=== PATIENT | male | born 1960 | race Caucasian/White ===

== ENCOUNTER 2021-01-16 09:40 | Inpatient (IN) | payer BC ==
[2021-01-16 10:19] LABS: Basophils % (A) 1 %; Eosinophils % (A) 0 %; HCT 46.6 % (39.0-53.0); HGB 16.8 gm/dL (13.0-17.5); Hyperchromasia Slight; Lymphocytes # (A) 0.6 k/uL (1.0-4.8); Lymphocytes % (A) 9 %; MCH 33.9 pg (25.0-35.0); MCHC 36.1 g/dL (31.0-37.0); MCV 93.9 fL (80.0-100.0); Mean Platelet Volume 7.4; Monocytes # (A) 0.2 k/uL (0-1.0); Monocytes % (A) 3 %; Neutrophils # (A) 5.7 k/uL (1.3-7.7); Neutrophils % (A) 86 %; Platelet Count 208 k/uL (150-450); RBC 4.96 m/uL (4.30-5.90); RDW 13.5 % (11.5-15.5); WBC 6.7 k/uL (3.8-10.6)
--- NOTE | 2021-01-16 10:24 | XR ---
EXAMINATION TYPE: XR chest 2V DATE OF EXAM: 01/16/2021 COMPARISON: NONE HISTORY: Shortness of breath TECHNIQUE: Frontal and lateral views of the chest are obtained. FINDINGS: Scattered senescent parenchymal changes noted. Hyperinflation compatible with COPD. I cannot exclude vague limited infiltrate at the lateral left lung base. Correlate clinically. Heart size is stable. Mediastinal structures are stable and grossly unremarkable. No evidence for hilar prominence. Degenerative changes dorsal spine. IMPRESSION: I cannot exclude vague limited infiltrate at the lateral left lung base. Correlate clinically.
--- NOTE | 2021-01-16 10:24 | ED ---
URI HPI - General Chief Complaint: Upper Respiratory Infection Stated Complaint: Covid+, SOB Time Seen by Provider: 01/16/21 09:52 Source: patient, RN notes reviewed Mode of arrival: wheelchair Limitations: no limitations - History of Present Illness Initial Comments: Patient is a 60-year-old male presented to the ED for upper respiratory symptoms. Patient reports cough congestion and mild shortness of breath with increased weakness and fatigue for the last 10 days. Patient reports symptoms started January 06, tested positive for "head on the as well. She was never tested but assumes it is also covid. Patient denies any respiratory il lness history or smoking. Patient's does report patient shivering and with chills. Patient denies ever having recorded fever. She reports decreased oral intake, diarrhea and decreased urinary output over the last 10 days. - Related Data Home Medications Medication Instructions Recorded Confirmed No Known Home Medications 01/16/21 01/16/21 Allergies Allergy/AdvReac Type Severity Reaction Status Date / Time No Known Allergies Allergy Verified 01/16/21 10:47 Review of Systems ROS Statement: Those systems with pertinent positive or pertinent negative responses have been documented in the HPI. ROS Other: All systems not noted in ROS Statement are negative. Past Medical History Past Medical History: No Reported History History of Any Multi-Drug Resistant Organisms: None Reported Past Surgical History: No Surgical Hx Reported Past Psychological History: No Psychological Hx Reported Smoking Status: Never smoker Past Alcohol Use History: None Reported Past Drug Use History: Marijuana General Exam Limitations: no limitations General appearance: alert, in no apparent distress Respiratory exam: Present: normal lung sounds bilaterally. Absent: respiratory distress, wheezes, rales, rhonchi, stridor Cardiovascular Exam: Present: regular rate, normal rhythm, normal heart sounds. Absent: systolic murmur, diastolic murmur, rubs, gallop, clicks GI/Abdominal exam: Present: soft, normal bowel sounds. Absent: distended, tenderness, guarding, rebound, rigid Neurological exam: Present: alert, oriented X3 Skin exam: Present: warm, dry, intact, normal color. Absent: rash Course Vital Signs 01/16/21 01/16/21 01/16/21 09:45 10:34 11:03 Temperature 98.5 F Pulse Rate 81 Respiratory 20 Rate Blood Pressure 116/80 O2 Sat by Pulse 89 L 95 89 L Oximetry Medical Decision Making - Medical Decision Making Patiently admitted for COVID-19 with hypoxia patient will consult pulmonary. - Lab Data Result diagrams: 01/16/21 10:05 01/16/21 10:05 Lab Results 01/16/21 01/16/21 01/16/21 Range/Units 10:05 10:05 10:05 WBC 6.7 (3.8-10.6) k/uL RBC 4.96 (4.30-5.90) m/uL Hgb 16.8 (13.0-17.5) gm/dL Hct 46.6 (39.0-53.0) % MCV 93.9 (80.0-100.0) fL MCH 33.9 (25.0-35.0) pg MCHC 36.1 (31.0-37.0) g/dL RDW 13.5 (11.5-15.5) % Plt Count 208 (150-450) k/uL MPV 7.4 Neutrophils % 86 % Lymphocytes % 9 % Monocytes % 3 % Eosinophils % 0 % Basophils % 1 % Neutrophils # 5.7 (1.3-7.7) k/uL Lymphocytes # 0.6 L (1.0-4.8) k/uL Monocytes # 0.2 (0-1.0) k/uL Eosinophils # 0.0 (0-0.7) k/uL Basophils # 0.0 (0-0.2) k/uL Hyperchromasia Slight Sodium 136 L (137-145) mmol/L Potassium 3.9 (3.5-5.1) mmol/L Chloride 100 (98-107) mmol/L Carbon Dioxide 26 (22-30) mmol/L Anion Gap 10 mmol/L BUN 54 H (9-20) mg/dL Creatinine 1.53 H (0.66-1.25) mg/dL Est GFR (CKD-EPI)AfAm 56 (>60 ml/min/1.73 sqM) Est GFR (CKD-EPI)NonAf 49 (>60 ml/min/1.73 sqM) Glucose 125 H (74-99) mg/dL Calcium 9.1 (8.4-10.2) mg/dL Total Bilirubin 1.5 H (0.2-1.3) mg/dL AST 85 H (17-59) U/L ALT 80 H (4-49) U/L Alkaline Phosphatase 73 (38-126) U/L Total Protein 7.1 (6.3-8.2) g/dL Albumin 3.9 (3.5-5.0) g/dL Coronavirus (PCR) Detected A (Not Detectd) Disposition Clinical Impression: Hypoxia, COVID-19 Disposition: ADMITTED IP TO THIS HOSP Condition: Fair Referrals: Amy Flores MD [Primary Care Provider] - 1-2 days
[2021-01-16 10:36] LABS: Albumin 3.9 g/dL (3.5-5.0); Calcium 9.1 mg/dL (8.4-10.2); Potassium 3.9 mmol/L (3.5-5.1); Total Bilirubin 1.5 mg/dL (0.2-1.3); Total Protein 7.1 g/dL (6.3-8.2)
[2021-01-16] MEDS ORDERED: SODIUM CHLORIDE 0.9% 1,000 ML IV STA (11:31)
[2021-01-16] MEDS ORDERED: NALOXONE 0.4 MG/ML 1 ML VIAL IV PRN (12:31)
[2021-01-16] MEDS ORDERED: ACETAMINOPHEN TAB 325 MG TAB PO PRN (12:31)
[2021-01-16] MEDS: DEXAMETHASONE SOD PHOSPHATE 10 MG/ML 1 ML VIAL IVP SCH (12:40)
[2021-01-16] MEDS: SODIUM CHLORIDE 0.9% 1,000 ML IV SCH (12:41)
[2021-01-16 13:32] LABS: C Reactive Protein 4.9 mg/dL (<1.0)
--- NOTE | 2021-01-16 13:50 | P.CNPUL ---
History of Present Illness Consult date: 01/16/21 Reason for consult: dyspnea, pneumonia History of present illness: 60-year-old male patient hospitalized for COVID-19 related pneumonia. Currently the patient does of oxygen by nasal cannula. He presented to the ED with symptoms of URI. He also had increased cough and congestion somewhat shortness of breath. His been experiencing weakness and fatigue for the past 10 days. The patient reports diminished oral intake, diarrhea and diminished urine output over the past 10 days. Denies having any fever. In the emergency department, he was afebrile, hemodynamically stable, pulse ox was 89% on room air, placed on 3 L about 2 by nasal cannula. Chest x-ray showing some limited infiltration of the lung bases most on the leftairfit the white cell count is at 6.7 with hemoglobin of 16.8 and the platelet count 28, BUN is 54 with a creatinine of 1.5 and sodium of 136 and a potassium level of 3.9, calcium 7.1, mild transaminitis with an AST of 85, ALT is 80, COVID-19 was positive. Patient was started on Decadron. Degenerative markers are still pending for now. He was also on IV fluids here and he is quite dehydrated. According to the , the patient has not been taking any oral intake for the past 4-5 days at least. He was getting progressively more weak and lethargic. Review of Systems Constitutional: Reports fatigue, Reports fever, Reports weakness Eyes: denies as per HPI, denies blurred vision, denies bulging eye, denies decreased vision, denies diplopia, denies discharge, denies dry eye, denies irritation, denies itching, denies pain, denies photophobia, denies loss of peripheral vision, denies loss of vision, denies tunnel vision/blind spots Ears: deny: decreased hearing, ear discharge, earache, tinnitus Ears, nose, mouth and throat: Reports as per HPI Breasts: absent: as per HPI, gynecomastia Cardiovascular: Reports as per HPI Respiratory: Reports cough, Reports dyspnea Gastrointestinal: Reports diarrhea Genitourinary: Reports as per HPI Musculoskeletal: Reports as per HPI Musculoskeletal: absent: ankle pain, ankle stiffness, ankle swelling, as per HPI, elbow pain, elbow stiffness, elbow swelling, foot pain, foot stiffness, foot swelling, hand pain, hand stiffness, hand swelling, hip pain, hip stiffness, hip swelling, knee pain, knee stiffness, knee swelling, shoulder pain, shoulder stiffness, shoulder swelling, wrist pain, wrist stiffness, wrist swelling Integumentary: Reports as per HPI Neurological: Reports as per HPI Psychiatric: Reports as per HPI Endocrine: Reports as per HPI Hematologic/Lymphatic: Reports as per HPI Allergic/Immunologic: Reports as per HPI Past Medical History Past Medical History: No Reported History History of Any Multi-Drug Resistant Organisms: None Reported Past Surgical History: No Surgical Hx Reported Past Psychological History: No Psychological Hx Reported Smoking Status: Never smoker Past Alcohol Use History: None Reported Past Drug Use History: Marijuana Medications and Allergies Home Medications Medication Instructions Recorded Confirmed Type No Known Home Medications 01/16/21 01/16/21 History Allergies Allergy/AdvReac Type Severity Reaction Status Date / Time No Known Allergies Allergy Verified 01/16/21 10:47 Physical Exam Vitals: Vital Signs Temp Pulse Resp BP Pulse Ox 01/16/21 12:44 98.9 F 76 16 101/80 97 01/16/21 11:03 89 L 01/16/21 10:34 95 01/16/21 09:45 98.5 F 81 20 116/80 89 L Intake and Output 01/15/21 01/16/21 01/16/21 22:59 06:59 14:59 Other: Weight 106.594 kg The patient appeared well nourished and normally developed. Vital signs as documented. Head exam is unremarkable. No scleral icterus or corneal arcus noted. Neck is without jugular venous distension, thyromegaly, or carotid bruits. Carotid upstrokes are brisk bilaterally. Lungs are clear to auscultation and percussion. Cardiac exam reveals the PMI to be normally sized and situated. Rhythm is regular. First and second heart sounds normal. No murmurs, rubs or gallops. Abdominal exam reveals normal bowel sounds, no masses, no organomegaly and no aortic enlargement. Extremities are nonedematous and both femoral and pedal pulses are normal.Examination of the skin revealed no evidence of significant rashes, suspicious appearing nevi or other concerning lesions.Neurologically, the patient is awake and alert and the patient does not have any focal neurological deficit. Cranial nerves are essentially intact. Results - Laboratory Findings CBC and BMP: 01/16/21 10:05 01/16/21 10:05 Abnormal lab findings: Abnormal Labs 01/16/21 01/16/21 01/16/21 10:05 10:05 10:05 Lymphocytes # 0.6 L Sodium 136 L BUN 54 H Creatinine 1.53 H Glucose 125 H Total Bilirubin 1.5 H AST 85 H ALT 80 H Coronavirus (PCR) Detected A - Diagnostic Findings Chest x-ray: image reviewed Assessment and Plan Plan: 1 acute COVID-19 related pneumonia. Symptoms started approximately 10 days ago. Patient presented worsening respiratory symptoms and currently hospitalized for hypoxic respiratory failure. This is a nonvaccinated individual 2 acute hypoxic respiratory failure secondary to above currently on 3 L of oxygen by nasal cannula 3 acute kidney injury, likely secondary to intravascular volume depleti on/dehydration. This report Plan Oxygen at 2 L per minute nasal cannula to maintain saturation above 90% Titrate FiO2 to maintain a saturation above 90% Check LDH, CRP and d-dimer and pro-calcitonin levels Decadron 6 mg by mouth on a daily basis The patient is also in the window for Remdesivir Lovenox 40 mg subcu for prophylaxis Multivitamins IV fluid hydration with normal saline as an hour Monitor renal function despite improvement Provide the patient incentive spirometer We'll continue to follow
[2021-01-16] MEDS: ASCORBIC ACID 500 MG TAB PO SCH (17:45)
[2021-01-16] MEDS: ENOXAPARIN 40 MG/0.4 ML SYRINGE SQ SCH (17:45)
[2021-01-16] MEDS: ZINC SULFATE 220 MG CAP PO SCH (17:46)
[2021-01-16] MEDS: CHOLECALCIFEROL 25 MCG (1000 IU) TABLET PO SCH (17:46)
--- NOTE | 2021-01-16 19:39 | P.HPIM ---
History of Present Illness This is a pleasant 60 years old male with no significant past medical history presents because of dyspnea is not getting better and his has been tested positive for Edwin. His symptoms started on 01/06 about 10 days ago. He also has some coughing but no chest pain. Patient had diarrhea which is stopped today. No abdominal pain or vomiting. Patient denies headache weakness or numbness. No dysuria. Patient was not vaccinated He denies smoking, alcohol or illicit tracts Vitals on admission looks stable. He is saturating 94% on 3 L oxygen via nasal cannula. CBC is unremarkable. D-dimer elevated at 3.5 Creatinine is elevated at 1.5 with unknown baseline. Mildly elevated liver enzymes. Coronal virus detected Chest x-ray: Scattered parenchymal changes noted. Hyperinflation compatible with COPD. Possible infiltrate and the left lateral lung Review of Systems CONSTITUTIONAL: No fever, no malaise, no fatigue. HEENT: No recent visual problems or hearing problems. Denied any sore throat. CARDIOVASCULAR: No orthopnea, PND, no palpitations, no syncope. PULMONARY: No shortness of breath, no cough, no hemoptysis. GASTROINTESTINAL: No diarrhea, no nausea, no vomiting, no abdominal pain. Normoactive bowel sounds. NEUROLOGICAL: No headaches, no weakness, no numbness. HEMATOLOGICAL: Denies any bleeding or petechiae. GENITOURINARY: Denies any burning micturition, frequency, or urgency. MUSCULOSKELETAL/RHEUMATOLOGICAL: Denies any joint pain, swelling, or any muscle pain. ENDOCRINE: Denies any polyuria or polydipsia. Past Medical History Past Medical History: No Reported History History of Any Multi-Drug Resistant Organisms: None Reported Past Surgical History: No Surgical Hx Reported Past Psychological History: No Psychological Hx Reported Smoking Status: Never smoker Past Alcohol Use History: None Reported Past Drug Use History: Marijuana Medications and Allergies Home Medications Medication Instructions Recorded Confirmed Type No Known Home Medications 01/16/21 01/16/21 History Allergies Allergy/AdvReac Type Severity Reaction Status Date / Time No Known Allergies Allergy Verified 01/16/21 10:47 Physical Exam Vitals: Vital Signs Temp Pulse Pulse Resp BP BP Pulse Ox 01/16/21 14:00 97.7 F 61 18 129/81 94 L 01/16/21 12:44 98.9 F 76 16 101/80 97 01/16/21 11:03 89 L 01/16/21 10:34 95 01/16/21 09:45 98.5 F 81 20 116/80 89 L Intake and Output 01/16/21 01/16/21 01/16/21 06:59 14:59 22:59 Other: Weight 106.594 kg GENERAL: The patient is alert and oriented x3, not in any acute distress. Well developed, well nourished. HEENT: Pupils are round and equally reacting to light. EOMI. No scleral icterus. No conjunctival pallor. Normocephalic, atraumatic. No pharyngeal erythema. No thyromegaly. CARDIOVASCULAR: S1 and S2 present. No murmurs, rubs, or gallops. PULMONARY: Chest is clear to auscultation, no wheezing or crackles. ABDOMEN: Soft, nontender, nondistended, normoactive bowel sounds. No palpable organomegaly. MUSCULOSKELETAL: No joint swelling or deformity. EXTREMITIES: No cyanosis, clubbing, or pedal edema. NEUROLOGICAL: Gross neurological examination did not reveal any focal deficits. SKIN: No rashes. No petechiae Results CBC & Chem 7: 01/16/21 10:05 01/16/21 10:05 Labs: Abnormal Lab Results - Last 24 Hours (Table) 01/16/21 01/16/21 01/16/21 Range/Units 10:05 10:05 10:05 Lymphocytes # 0.6 L (1.0-4.8) k/uL D-Dimer (<0.60) mg/L FEU Sodium 136 L (137-145) mmol/L BUN 54 H (9-20) mg/dL Creatinine 1.53 H (0.66-1.25) mg/dL Glucose 125 H (74-99) mg/dL Total Bilirubin 1.5 H (0.2-1.3) mg/dL AST 85 H (17-59) U/L ALT 80 H (4-49) U/L Lactate Dehydrogenase (313-618) U/L C-Reactive Protein (<1.0) mg/dL Coronavirus (PCR) Detected A (Not Detectd) 01/16/21 01/16/21 Range/Units 10:07 10:07 Lymphocytes # (1.0-4.8) k/uL D-Dimer 3.50 H (<0.60) mg/L FEU Sodium (137-145) mmol/L BUN (9-20) mg/dL Creatinine (0.66-1.25) mg/dL Glucose (74-99) mg/dL Total Bilirubin (0.2-1.3) mg/dL AST (17-59) U/L ALT (4-49) U/L Lactate Dehydrogenase 1565 H (313-618) U/L C-Reactive Protein 4.9 H (<1.0) mg/dL Coronavirus (PCR) (Not Detectd) Thrombosis Risk Factor Assmnt - Choose All That Apply Any of the Below Risk Factors Present?: Yes Each Factor Represents 1 point: Age 41-60 years, Obesity (BMI >25), Serious lung disease incl. pneumonia (< 1month) Other Risk Factors: No Other congenital or acquired thrombophilia - If yes, enter type in comment: No Thrombosis Risk Factor Assessment Total Risk Factor Score: 3 Thrombosis Risk Factor Assessment Level: Moderate Risk Assessment and Plan Assessment: Bilateral Covid pneumonia Acute hypoxic respiratory failure. Increased inflammatory markers Increased d-dimer. Acute kidney injury secondary to gastroenteritis Acute gastroenteritis related to Covid infection Mildly elevated liver enzymes Plan: This is a pleasant 60 years old male who presents with Covid. Multiple Vitamins with vitamin C, D and zinc and dexamethasone IV hydration Lovenox. Monitor markers, d-dimer and protcalcitonin Pulmonary consult Labs and medication were reviewed.. Continue same treatment. Continue with symptomatic treatment. Resume home medication. Monitor lytes and vitals. DVT and GI prophylaxis. Further recommendations depends on the clinical course of the patient DVT prophylaxis: Subcutaneous Lovenox GI Prophylaxis: Pepcid Prognosis is guarded
[2021-01-17] MEDS: SODIUM CHLORIDE 0.9% 1,000 ML IV SCH ×2 (01:28→16:40)
[2021-01-17] MEDS: CHOLECALCIFEROL 25 MCG (1000 IU) TABLET PO SCH (09:06)
[2021-01-17] MEDS: ENOXAPARIN 40 MG/0.4 ML SYRINGE SQ SCH (09:06)
[2021-01-17] MEDS: ZINC SULFATE 220 MG CAP PO SCH (09:06)
[2021-01-17] MEDS: FAMOTIDINE 20 MG TAB PO SCH (09:06)
[2021-01-17] MEDS: ASCORBIC ACID 500 MG TAB PO SCH (09:06)
[2021-01-17] MEDS: DEXAMETHASONE SOD PHOSPHATE 10 MG/ML 1 ML VIAL IVP SCH (10:05)
[2021-01-17 10:24] LABS: African American GFR (CKD) 81.4 (60.0-200.0); Anion Gap 13.4 mmol/L (4.00-12.00); BUN/Creat Ratio 36.46 Ratio (12.00-20.00); Blood Urea Nitrogen 41.2 mg/dL (9.0-27.0); C Reactive Protein 3.2 mg/dL (0.00-0.80); Calcium 8.5 mg/dL (8.7-10.3); Carbon Dioxide 22.4 mmol/L (21.6-31.8); Non-African American GFR(CKD) 70.3 (60.0-200.0); Potassium 4.8 mmol/L (3.5-5.5)
--- NOTE | 2021-01-17 10:55 | P.PN ---
Subjective Progress Note Date: 01/17/21 60-year-old male patient hospitalized for COVID-19 related pneumonia. Currently the patient does of oxygen by nasal cannula. He presented to the ED with symptoms of URI. He also had increased cough and congestion somewhat shortness of breath. His been experiencing weakness and fatigue for the past 10 days. The patient reports diminished oral intake, diarrhea and diminished urine output over the past 10 days. Denies having any fever. In the emergency department, he was afebrile, hemodynamically stable, pulse ox was 89% on room air, placed on 3 L about 2 by nasal cannula. Chest x-ray showing some limited infiltration of the lung bases most on the leftairfit the white cell count is at 6.7 with hemoglobin of 16.8 and the platelet count 28, BUN is 54 with a creatinine of 1.5 and sodium of 136 and a potassium level of 3.9, calcium 7.1, mild transaminitis with an AST of 85, ALT is 80, COVID-19 was positive. Patient was started on Decadron. Degenerative markers are still pending for now. He was also on IV fluids here and he is quite dehydrated. According to the , the patient has not been taking any oral intake for the past 4-5 days at least. He was getting progressively more weak and lethargic. On today's evaluation of 01/17/2021, the patient is being seen for a follow-up. The patient was hospitalized for COVID-19 pneumonia. The patient is on De cadron. The patient was out of the window for Remdesivir.. For now, the patient is on oxygen and is currently on 3 L of oxygen by nasal cannula. D- dimer is down to 1.89, his LDH level is down to 469 and a CRP level is down to 3.2. Pro-calcitonin level was 0.13. Rest of the blood work shows improvement in his kidney function and creatinine is down to 1.1 from a baseline of 1.53. No other complaints otherwise for now. Resting comfortably in bed. No worsening in his oxygenation. Objective - Vital Signs Vital signs: Vital Signs Temp 97.5 F L 01/17/21 05:33 Pulse 60 01/17/21 05:33 Resp 17 01/17/21 05:33 BP 119/76 01/17/21 05:33 Pulse Ox 95 01/17/21 05:33 Intake & Output 01/16/21 01/17/21 01/17/21 18:59 06:59 18:59 Weight 106.594 kg Other: # Voids 1 1 - Exam The patient appeared well nourished and normally developed. Vital signs as documented. Head exam is unremarkable. No scleral icterus or corneal arcus noted. Neck is without jugular venous distension, thyromegaly, or carotid bruits. Carotid upstrokes are brisk bilaterally. Lungs are clear to auscultation and percussion. Cardiac exam reveals the PMI to be normally sized and situated. Rhythm is regular. First and second heart sounds normal. No murmurs, rubs or gallops. Abdominal exam reveals normal bowel sounds, no masses, no organomegaly and no aortic enlargement. Extremities are nonedematous and both femoral and pedal pulses are normal.Examination of the skin revealed no evidence of significant rashes, suspicious appearing nevi or other concerning lesions.Neurologically, the patient is awake and alert and the patient does not have any focal neurological deficit. Cranial nerves are essentially intact. - Labs CBC & Chem 7: 01/16/21 10:05 01/17/21 06:49 Labs: Abnormal Lab Results - Last 24 Hours (Table) 01/16/21 01/16/21 01/17/21 Range/Units 10:07 10:07 06:49 D-Dimer 3.50 H 1.89 H (<0.60) mg/L FEU Anion Gap (4.00-12.00) mmol/L BUN (9.0-27.0) mg/dL BUN/Creatinine Ratio (12.00-20.00) Ratio Glucose (70-110) mg/dL Calcium (8.7-10.3) mg/dL Lactate Dehydrogenase 1565 H (313-618) U/L C-Reactive Protein 4.9 H (<1.0) mg/dL Procalcitonin (0.02-0.09) ng/mL 01/17/21 01/17/21 Range/Units 06:49 06:49 D-Dimer (<0.60) mg/L FEU Anion Gap 13.40 H (4.00-12.00) mmol/L BUN 41.2 H (9.0-27.0) mg/dL BUN/Creatinine Ratio 36.46 H (12.00-20.00) Ratio Glucose 138 H (70-110) mg/dL Calcium 8.5 L (8.7-10.3) mg/dL Lactate Dehydrogenase 469 H (313-618) U/L C-Reactive Protein 3.20 H (<1.0) mg/dL Procalcitonin 0.13 H (0.02-0.09) ng/mL Assessment and Plan Plan: 1 acute COVID-19 related pneumonia. Symptoms started approximately 10 days ago. Patient presented worsening respiratory symptoms and currently hospitalized for hypoxic respiratory failure. This is a nonvaccinated individual . The patient remains on Decadron for now. Inflammatory markers are improving 2 acute hypoxic respiratory failure secondary to above currently on 3 L of oxygen by nasal cannula 3 acute kidney injury, likely secondary to intravascular volume depl etion/dehydration. Kidney functions improved and the creatinine is down to 1.1 with hydration Plan Oxygen at 3 L L per minute nasal cannula to maintain saturation above 90% Titrate FiO2 to maintain a saturation above 90% Decadron 6 mg by mouth on a daily basis The patient is also in the window for Remdesivir Lovenox 40 mg subcu for prophylaxis Multivitamins IV fluid hydration Provide the patient incentive spirometer We'll continue to follow
--- NOTE | 2021-01-17 16:49 | P.PN ---
Subjective This is a pleasant 60 years old male with no significant past medical history presents because of dyspnea is not getting better and his has been tested positive for Edwin. His symptoms started on 01/06 about 10 days ago. He also has some coughing but no chest pain. Patient had diarrhea which is stopped today. No abdominal pain or vomiting. Patient denies headache weakness or numbness. No dysuria. Patient was not vaccinated He denies smoking, alcohol or illicit tracts Vitals on admission looks stable. He is saturating 94% on 3 L oxygen via nasal cannula. CBC is unremarkable. D-dimer elevated at 3.5 Creatinine is elevated at 1.5 with unknown baseline. Mildly elevated liver enzymes. Coronal virus detected Chest x-ray: Scattered parenchymal changes noted. Hyperinflation compatible with COPD. Possible infiltrate and the left lateral lung 01/17/2021 Patient is significantly improving. His tachypneic or dyspneic. He is doing well generally. No chest pain or other complaints. Oxygen requirement is only 3 L/m. Inflammatory markers are trending down including LDH, C-reactive protein and d- dimer. Patient remains on dexamethasone, multiple vitamins and gentle hydration Discussed with pulmonary team Objective - Vital Signs Vital signs: Vital Signs Temp 97.6 F 01/17/21 14:00 Pulse 61 01/17/21 14:00 Resp 18 01/17/21 14:00 BP 125/78 01/17/21 14:00 Pulse Ox 95 01/17/21 14:00 Intake & Output 01/16/21 01/17/21 01/17/21 18:59 06:59 18:59 Weight 106.594 kg Other: # Voids 1 1 - Exam GENERAL: The patient is alert and oriented x3, not in any acute distress. Well developed, well nourished. HEENT: Pupils are round and equally reacting to light. EOMI. No scleral icterus. No conjunctival pallor. Normocephalic, atraumatic. No pharyngeal erythema. No thyromegaly. CARDIOVASCULAR: S1 and S2 present. No murmurs, rubs, or gallops. PULMONARY: Chest is clear to auscultation, no wheezing or crackles. ABDOMEN: Soft, nontender, nondistended, normoactive bowel sounds. No palpable organomegaly. MUSCULOSKELETAL: No joint swelling or deformity. EXTREMITIES: No cyanosis, clubbing, or pedal edema. NEUROLOGICAL: Gross neurological examination did not reveal any focal deficits. SKIN: No rashes. No petechiae - Labs CBC & Chem 7: 01/16/21 10:05 01/17/21 06:49 Labs: Abnormal Lab Results - Last 24 Hours (Table) 01/17/21 01/17/21 01/17/21 Range/Units 06:49 06:49 06:49 D-Dimer 1.89 H (<0.60) mg/L FEU Anion Gap 13.40 H (4.00-12.00) mmol/L BUN 41.2 H (9.0-27.0) mg/dL BUN/Creatinine Ratio 36.46 H (12.00-20.00) Ratio Glucose 138 H (70-110) mg/dL Calcium 8.5 L (8.7-10.3) mg/dL Lactate Dehydrogenase 469 H (120-246) U/L C-Reactive Protein 3.20 H (0.00-0.80) mg/dL Procalcitonin 0.13 H (0.02-0.09) ng/mL Assessment and Plan Assessment: Bilateral Covid pneumonia Acute hypoxic respiratory failure. Increased inflammatory markers Increased d-dimer. Acute kidney injury secondary to gastroenteritis Acute gastroenteritis related to Covid infection Mildly elevated liver enzymes Plan: This is a pleasant 60 years old male who presents with Covid. Multiple Vitamins with vitamin C, D and zinc and dexamethasone IV hydration Lovenox. Monitor markers, d-dimer and protcalcitonin Pulmonary consult Labs and medication were reviewed.. Continue same treatment. Continue with symptomatic treatment. Resume home medication. Monitor lytes and vitals. DVT and GI prophylaxis. Further recommendations depends on the clinical course of the patient DVT prophylaxis: Subcutaneous Lovenox GI Prophylaxis: Pepcid Prognosis is guarded
[2021-01-18] MEDS: SODIUM CHLORIDE 0.9% 1,000 ML IV SCH ×2 (04:08→18:55)
[2021-01-18] MEDS: ASCORBIC ACID 500 MG TAB PO SCH (09:09)
[2021-01-18] MEDS: CHOLECALCIFEROL 25 MCG (1000 IU) TABLET PO SCH (09:09)
[2021-01-18] MEDS: ENOXAPARIN 40 MG/0.4 ML SYRINGE SQ SCH (09:09)
[2021-01-18] MEDS: FAMOTIDINE 20 MG TAB PO SCH (09:09)
[2021-01-18] MEDS: ZINC SULFATE 220 MG CAP PO SCH (09:09)
[2021-01-18] MEDS: DEXAMETHASONE SOD PHOSPHATE 10 MG/ML 1 ML VIAL IVP SCH (09:09)
--- NOTE | 2021-01-18 15:03 | P.PN ---
Subjective Progress Note Date: 01/18/21 Principal diagnosis: Acute COVID-19 pneumonia 60-year-old male patient hospitalized for COVID-19 related pneumonia. Currently the patient does of oxygen by nasal cannula. He presented to the ED with symptoms of URI. He also had increased cough and congestion somewhat shortness of breath. His been experiencing weakness and fatigue for the past 10 days. The patient reports diminished oral intake, diarrhea and diminished urine output over the past 10 days. Denies having any fever. In the emergency department, he was afebrile, hemodynamically stable, pulse ox was 89% on room air, placed on 3 L about 2 by nasal cannula. Chest x-ray showing some limited infiltration of the lung bases most on the leftairfit the white cell count is at 6.7 with hemoglobin of 16.8 and the platelet count 28, BUN is 54 with a creatinine of 1.5 and sodium of 136 and a potassium level of 3.9, calcium 7.1, mild transaminitis with an AST of 85, ALT is 80, COVID-19 was positive. Patient was started on Decadron. Degenerative markers are still pending for now. He was also on IV fluids here and he is quite dehydrated. According to the , the patient has not been taking any oral intake for the past 4-5 days at least. He was getting progressively more weak and lethargic. On today's evaluation of 01/17/2021, the patient is being seen for a follow-up. The patient was hospitalized for COVID-19 pneumonia. The patient is on Decadron. The patient was out of the window for Remdesivir.. For now, the patient is on oxygen and is currently on 3 L of oxygen by nasal cannula. D-dime r is down to 1.89, his LDH level is down to 469 and a CRP level is down to 3.2. Pro-calcitonin level was 0.13. Rest of the blood work shows improvement in his kidney function and creatinine is down to 1.1 from a baseline of 1.53. No other complaints otherwise for now. Resting comfortably in bed. No worsening in his oxygenation. On 01/18/2021 patient seen in follow-up on medical surgical floor. He is currently down to 3 L, his pulse ox is 97%, FiO2 can probably be weaned further. Breathing comfortably, afebrile, hemodynamically stable, no complaints of chest discomfort, he is sitting up in the chair, as been ambulating in the room, tolerating activity fairly well. Chest x-ray is pending for tomorrow, he has had no acute events overnight. Currently remains on Decadron 6 mg daily, L ovenox 40 mg daily, and multivitamins. No new labs for today, his d-dimer from yesterday was improving, and was down to 1.89, his LDH as CRP were also improving and were down to 469, and CRP was 3.20 Objective - Vital Signs Vital signs: Vital Signs Temp 97.5 F L 01/18/21 06:24 Pulse 53 L 01/18/21 07:49 Resp 17 01/18/21 07:49 BP 130/75 01/18/21 06:24 Pulse Ox 97 01/18/21 06:24 Intake & Output 01/17/21 01/18/21 01/18/21 18:59 06:59 18:59 Other: # Voids 2 2 - Exam GENERAL EXAM: Alert, very pleasant, 60-year-old white male on 3 L of oxygen with a pulse ox of 91-97% comfortable in no apparent distress. HEAD: Normocephalic/atraumatic. EYES: Normal reaction of pupils, equal size. Conjunctiva pink, sclera white. NOSE: Clear with pink turbinates. THROAT: No erythema or exudates. NECK: No masses, no JVD, no thyroid enlargement, no adenopathy. CHEST: No chest wall deformity. Symmetrical expansion. LUNGS: Equal air entry with diffuse crackles CVS: Regular rate and rhythm, normal S1 and S2, no gallops, no murmurs, no rubs ABDOMEN: Soft, nontender. No hepatosplenomegaly, normal bowel sounds, no guarding or rigidity. EXTREMITIES: No clubbing, no edema, no cyanosis, 2+ pulses and upper and lower extremities. MUSCULOSKELETAL: Muscle strength and tone normal. SPINE: No scoliosis or deformity SKIN: No rashes CENTRAL NERVOUS SYSTEM: Alert and oriented -3. No focal deficits, tone is normal in all 4 extremities. PSYCHIATRIC: Alert and oriented -3. Appropriate affect. Intact judgment and insight. - Labs CBC & Chem 7: 01/16/21 10:05 01/17/21 06:49 Assessment and Plan Plan: Assessment: #1. Acute COVID-19 pneumonia, with onset of symptoms 10 days prior to presentation. As such patient was outside the window for Remdesivir, patient was not vaccinated for COVID 19. Is currently on Decadron,, and prophylactic anticoagulation #2. Acute hypoxic respiratory failure, currently on 3 L of oxygen #3. Acute kidney injury secondary to intravascular volume depletion/dehydration, improving with hydration Plan: Continue current therapy Continue same dose Decadron, and prophylactic anticoagulation Inflammatory markers and d-dimer were improving Weaning FiO2, increase activity as tolerated Follow-up chest x-ray tomorrow, follow-up labs including inflammatory markers a d-dimer Continue IV hydration If remains stable, without decompensation or worsening hypoxia or dyspnea will consider for discharge home tomorrow I performed a history & physical examination of the patient and discussed their management with my nurse practitioner, Kathe Prince. I reviewed the nurse practitioner's note and agree with the documented findings and plan of care. Irene ng sounds are positive for dim breath sounds throughout the lung white. The findings and the impression was discussed with the patient. I attest to the documentation by the nurse practitioner. Time with Patient: Less than 30
--- NOTE | 2021-01-18 19:58 | P.PN ---
Progress Note - Text Progress Note Date: 01/18/21 Per Sheet {This is a pleasant 60 years old male with no significant past medical history presents because of dyspnea is not getting better and his has been tested positive for COVID. His symptoms started on 01/06 about 10 days ago. He also has some coughing but no chest pain. Patient had diarrhea which is stopped today. No abdominal pain or vomiting. Patient denies headache weakness or numbness. No dysuria. Patient was not vaccinated He denies smoking, alcohol or illicit tracts Vitals on admission looks stable. He is saturating 94% on 3 L oxygen via nasal cannula. CBC is unremarkable. D-dimer elevated at 3.5 Creatinine is elevated at 1.5 with unknown baseline. Mildly elevated liver enzymes. Coronal virus detected Chest x-ray: Scattered parenchymal changes noted. Hyperinflation compatible with COPD. Possible infiltrate and the left lateral lung 01/17/2021 Patient is significantly improving. His tachypneic or dyspneic. He is doing well generally. No chest pain or other complaints. Oxygen requirement is only 3 L/m. Inflammatory markers are trending down including LDH, C-reactive protein and d- dimer. Patient remains on dexamethasone, multiple vitamins and gentle hydration} 01/18/2021: Mild short of breath. Eating okay. Sitting up. Review of systems: Was done for constitutional, cardiovascular, GI, pulmonary. relevant finding as above Active Medications Acetaminophen (Acetaminophen Tab 325 Mg Tab) 650 mg PO Q6HR PRN PRN Reason: Mild Pain or Fever > 100.5 Ascorbic Acid (Ascorbic Acid 500 Mg Tab) 1,000 mg PO DAILY [facility] Last Admin: 01/18/21 09:09 Dose: 1,000 mg Documented by: Cholecalciferol (Cholecalciferol 25 Mcg (1000 Iu) Tablet) 25 mcg PO DAILY [facility] Last Admin: 01/18/21 09:09 Dose: 25 mcg Documented by: Dexamethasone (Dexamethasone 2 Mg Tab) 6 mg PO DAILY [facility] Enoxaparin Sodium (Enoxaparin 40 Mg/0.4 Ml Syringe) 40 mg SQ DAILY [facility] Last Admin: 01/18/21 09:09 Dose: 40 mg Documented by: Famotidine (Famotidine 20 Mg Tab) 40 mg PO DAILY [facility] Last Admin: 01/18/21 09:09 Dose: 40 mg Documented by: Sodium Chloride (Saline 0.9%) 1,000 mls @ 75 mls/hr IV .[id number] [facility] Last Admin: 01/18/21 04:08 Dose: Not Given Documented by: Naloxone HCl (Naloxone 0.4 Mg/Ml 1 Ml Vial) 0.2 mg IV Q2M PRN PRN Reason: Opioid Reversal Zinc Sulfate (Zinc Sulfate 220 Mg Cap) 220 mg PO DAILY [facility] Last Admin: 01/18/21 09:09 Dose: 220 mg Documented by: On examination: VITAL SIGNS: 97.5, 59, 20, 122/68, 92% on 3 L GENERAL APPEARANCE: Sitting up, not in distress NECK: JVD not raised. Mass not palpable. RESPIRATORY: Respiratory effort normal. PSYCHIATRY: Alert and oriented x3. Mood and affect normal. Rest of exam. Pulmonary nursing Investigations: D-dimer 1.89 potassium 4.8 BUN 41.2 creatinine 1.1 CRP 3.2 procalcitonin 0.13 COVID 19 [PCR]: Detected Assessment plan: -Bilateral Covid pneumonia Dexamethasone 6 mg -Acute hypoxic respiratory failure. 92% on 3 L -Acute kidney injury secondary to gastroenteritis, prerenal IV fluids. Follow labs -Acute gastroenteritis related to Covid 19 Mildly elevated liver enzymes Continue with steroids, oxygen. Incentive spirometry. Sitting up in a chair. Follow with pulmonary.
[2021-01-19] MEDS: ASCORBIC ACID 500 MG TAB PO SCH (08:58)
[2021-01-19] MEDS: CHOLECALCIFEROL 25 MCG (1000 IU) TABLET PO SCH (08:58)
[2021-01-19] MEDS: FAMOTIDINE 20 MG TAB PO SCH (08:58)
[2021-01-19] MEDS: ZINC SULFATE 220 MG CAP PO SCH (08:58)
[2021-01-19] MEDS ORDERED: dexAMETHasone 2 MG TAB PO SCH (09:00)
[2021-01-19 09:33] LABS: African American GFR (CKD) >90 (>60 ml/min/1.73 sqM); Anion Gap 6 mmol/L; Blood Urea Nitrogen 25 mg/dL (9-20); C Reactive Protein 1.3 mg/dL (<1.0); Calcium 8.9 mg/dL (8.4-10.2); Carbon Dioxide 24 mmol/L (22-30); Chloride 111 mmol/L (98-107); Glucose 116 mg/dL (74-99); LDH 1049 U/L (313-618); Non-African American GFR(CKD) >90 (>60 ml/min/1.73 sqM); Potassium 4.2 mmol/L (3.5-5.1); Sodium 141 mmol/L (137-145)
[2021-01-19 09:38] LABS: Basophils % (A) 0 %; Eosinophils % (A) 0 %; HCT 41.3 % (39.0-53.0); HGB 14.1 gm/dL (13.0-17.5); Lymphocytes # (A) 0.7 k/uL (1.0-4.8); Lymphocytes % (A) 8 %; MCH 33.2 pg (25.0-35.0); MCHC 34.1 g/dL (31.0-37.0); MCV 97.3 fL (80.0-100.0); Mean Platelet Volume 7.8; Monocytes # (A) 0.3 k/uL (0-1.0); Monocytes % (A) 4 %; Neutrophils # (A) 7.7 k/uL (1.3-7.7); Neutrophils % (A) 87 %; Platelet Count 247 k/uL (150-450); RBC 4.24 m/uL (4.30-5.90); RDW 12.7 % (11.5-15.5); WBC 8.9 k/uL (3.8-10.6)
--- NOTE | 2021-01-19 09:52 | XR ---
EXAMINATION TYPE: XR chest 1V portable DATE OF EXAM: 01/19/2021 COMPARISON: Chest x-ray 01/16/2021 HISTORY: Covid TECHNIQUE: Single frontal view of the chest is obtained. FINDINGS: Peripheral airspace disease is again noted predominantly on the left. Patient is rotated. No evident pneumothorax or pleural effusion. Cardiac mediastinal silhouette is stable. IMPRESSION: Correlate for pneumonia.
[2021-01-19 10:36] VITALS: BP 133/83; PULSE 62; RESP 16; TEMP 97.8
[2021-01-19] MEDS: ENOXAPARIN 40 MG/0.4 ML SYRINGE SQ SCH (12:45)
--- NOTE | 2021-01-19 13:51 | P.PN ---
Subjective Progress Note Date: 01/19/21 Principal diagnosis: Acute COVID-19 pneumonia 60-year-old male patient hospitalized for COVID-19 related pneumonia. Currently the patient does of oxygen by nasal cannula. He presented to the ED with symptoms of URI. He also had increased cough and congestion somewhat shortness of breath. His been experiencing weakness and fatigue for the past 10 days. The patient reports diminished oral intake, diarrhea and diminished urine output over the past 10 days. Denies having any fever. In the emergency department, he was afebrile, hemodynamically stable, pulse ox was 89% on room air, placed on 3 L about 2 by nasal cannula. Chest x-ray showing some limited infiltration of the lung bases most on the leftairfit the white cell count is at 6.7 with hemoglobin of 16.8 and the platelet count 28, BUN is 54 with a creatinine of 1.5 and sodium of 136 and a potassium level of 3.9, calcium 7.1, mild transaminitis with an AST of 85, ALT is 80, COVID-19 was positive. Patient was started on Decadron. Degenerative markers are still pending for now. He was also on IV fluids here and he is quite dehydrated. According to the , the patient has not been taking any oral intake for the past 4-5 days at least. He was getting progressively more weak and lethargic. On today's evaluation of 01/17/2021, the patient is being seen for a follow-up. The patient was hospitalized for COVID-19 pneumonia. The patient is on Decadron. The patient was out of the window for Remdesivir.. For now, the patient is on oxygen and is currently on 3 L of oxygen by nasal cannula. D-dime r is down to 1.89, his LDH level is down to 469 and a CRP level is down to 3.2. Pro-calcitonin level was 0.13. Rest of the blood work shows improvement in his kidney function and creatinine is down to 1.1 from a baseline of 1.53. No other complaints otherwise for now. Resting comfortably in bed. No worsening in his oxygenation. On 01/18/2021 patient seen in follow-up on medical surgical floor. He is currently down to 3 L, his pulse ox is 97%, FiO2 can probably be weaned further. Breathing comfortably, afebrile, hemodynamically stable, no complaints of chest discomfort, he is sitting up in the chair, as been ambulating in the room, tolerating activity fairly well. Chest x-ray is pending for tomorrow, he has had no acute events overnight. Currently remains on Decadron 6 mg daily, L ovenox 40 mg daily, and multivitamins. No new labs for today, his d-dimer from yesterday was improving, and was down to 1.89, his LDH as CRP were also improving and were down to 469, and CRP was 3.20 On 01/19/2021 patient seen in follow-up medical surgical floor, patient is doing good, breathing very comfortably, he isn't definitive oxygen his pulse ox of 94%, he didn't qualify for home oxygen, he will be going home on home O2. No fever or chills, signs have been stable, follow-up chest x-ray today shows peripheral airspace disease predominantly on the left. Today's labs have been reviewed, his d-dimer is improving and is down to 1.54, his LDH improved on yesterday's labs, and is up to 1049 on today's labs, but overall remains improved since admission. CRP is down to 1.3, procalcitonin level was negative at 0.13. Patient remains on Decadron 6 mg daily, Lovenox, and multivitamins. Objective - Vital Signs Vital signs: Vital Signs Temp 97.8 F 01/19/21 10:00 Pulse 62 01/19/21 10:00 Resp 16 01/19/21 10:00 BP 133/83 01/19/21 10:00 Pulse Ox 94 L 01/19/21 10:00 Intake & Output 01/18/21 01/19/21 01/19/21 18:59 06:59 18:59 Intake Total 1200 990 236 Output Total 600 Balance 1200 390 236 Intake: Intake, IV Titration 600 750 Amount Sodium Chloride 0.9% 1, 600 750 000 ml @ 75 mls/hr IV . [id number] [facility] Rx#:[id number] Oral 600 240 236 Output: Urine 600 Other: Voiding Method Toilet Toilet # Voids 4 2 # Bowel Movements 1 - Exam GENERAL EXAM: Alert, very pleasant, 60-year-old white male on 2 L of oxygen with a pulse ox of 94% comfortable in no apparent distress. HEAD: Normocephalic/atraumatic. EYES: Normal reaction of pupils, equal size. Conjunctiva pink, sclera white. NOSE: Clear with pink turbinates. THROAT: No erythema or exudates. NECK: No masses, no JVD, no thyroid enlargement, no adenopathy. CHEST: No chest wall deformity. Symmetrical expansion. LUNGS: Equal air entry with diffuse crackles CVS: Regular rate and rhythm, normal S1 and S2, no gallops, no murmurs, no rubs ABDOMEN: Soft, nontender. No hepatosplenomegaly, normal bowel sounds, no guarding or rigidity. EXTREMITIES: No clubbing, no edema, no cyanosis, 2+ pulses and upper and lower extremities. MUSCULOSKELETAL: Muscle strength and tone normal. SPINE: No scoliosis or deformity SKIN: No rashes CENTRAL NERVOUS SYSTEM: Alert and oriented -3. No focal deficits, tone is normal in all 4 extremities. PSYCHIATRIC: Alert and oriented -3. Appropriate affect. Intact judgment and insight. - Labs CBC & Chem 7: 01/19/21 08:44 01/19/21 08:44 Labs: Abnormal Lab Results - Last 24 Hours (Table) 01/19/21 01/19/21 01/19/21 Range/Units 08:44 08:44 08:44 RBC 4.24 L (4.30-5.90) m/uL Lymphocytes # 0.7 L (1.0-4.8) k/uL D-Dimer 1.54 H (<0.60) mg/L FEU Chloride 111 H (98-107) mmol/L BUN 25 H (9-20) mg/dL Glucose 116 H (74-99) mg/dL Lactate Dehydrogenase 1049 H (313-618) U/L C-Reactive Protein 1.3 H (<1.0) mg/dL Assessment and Plan Plan: Assessment: #1. Acute COVID-19 pneumonia, with onset of symptoms 10 days prior to presentation. As such patient was outside the window for Remdesivir, patient was not vaccinated for COVID 19. Is currently on Decadron,, and prophylactic anticoagulation #2. Acute hypoxic respiratory failure, currently on 3 L of oxygen #3. Acute kidney injury secondary to intravascular volume depletion/dehydration, improving with hydration Plan: Clinically patient remains stable, improving Inflammatory markers and d-dimer were improving Patient did qualify for home oxygen, and he'll be going home on 2 L of oxygen No acute events overnight, patient is going home today She can complete outpatient Decadron course for a total of 10 days, oral prednisone taper Outpatient follow-up with Dr. Rowell in the office I performed a history & physical examination of the patient and discussed their management with my nurse practitioner, Kathe Prince. I reviewed the nurse practitioner's note and agree with the documented findings and plan of care. Lung sounds are positive for dim breath sounds throughout the lung white. The findings and the impression was discussed with the patient. I attest to the documentation by the nurse practitioner. Time with Patient: Less than 30
--- NOTE | 2021-01-19 18:37 | P.DS ---
Providers Date of admission: 01/16/21 12:25 Expected date of discharge: 01/19/21 Attending physician: Mariano Olivas Consults: 01/16/21 12:31 Consult Physician Urgent Consulting Provider: Fay Rowell Consult Reason/Comments: COVID-19, hypoxia Do you want consulting provider notified?: Yes Primary care physician: Amy Flores [facility] Course: Per Sheet {This is a pleasant 60 years old male with no significant past medical history presents because of dyspnea is not getting better and his has been tested positive for COVID. His symptoms started on 01/06 about 10 days ago. He also has some coughing but no chest pain. Patient had diarrhea which is stopped today. No abdominal pain or vomiting. Patient denies headache weakness or numbness. No dysuria. Patient was not vaccinated He denies smoking, alcohol or illicit tracts Vitals on admission looks stable. He is saturating 94% on 3 L oxygen via nasal cannula. CBC is unremarkable. D-dimer elevated at 3.5 Creatinine is elevated at 1.5 with unknown baseline. Mildly elevated liver enzymes. Coronal virus detected Chest x-ray: Scattered parenchymal changes noted. Hyperinflation compatible with COPD. Possible infiltrate and the left lateral lung 01/17/2021 Patient is significantly improving. His tachypneic or dyspneic. He is doing well generally. No chest pain or other complaints. Oxygen requirement is only 3 L/m. Inflammatory markers are trending down including LDH, C-reactive protein and d- dimer. Patient remains on dexamethasone, multiple vitamins and gentle hydration} 01/18/2021: Mild short of breath. Eating okay. Sitting up. 01/19/2021: Breathing better. Oral intake good. No cough. No fever no chills. On 2 L of nasal cannula. Discussed with the patient. Dr. Murray. Will discharged on xarelto 10 mg for DVT prophylaxis. Prednisone taper. COVID-19 DC orders. Consultation: Dr. Murray in partners from pulmonary On examination: VITAL SIGNS: 97.8, 62, 16, 133 with 83, 94% on 2 L GENERAL APPEARANCE: Sitting up in chair, not in distress NECK: JVD not raised. Mass not palpable. RESPIRATORY: Respiratory effort normal. PSYCHIATRY: Alert and oriented x3. Mood and affect normal. Rest of exam. Pulmonary nursing Investigations: January 19: WBC 8.9 hemoglobin 14.1 d-dimer 1.54 potassium 4.2 creatinine 0.94 CRP 1.3 D-dimer 1.89 potassium 4.8 BUN 41.2 creatinine 1.1 CRP 3.2 procalcitonin 0.13 COVID 19 [PCR]: Detected Assessment plan: -Bilateral Covid pneumonia, improving Dexamethasone 6 mg. DC on prednisone taper -Acute hypoxic respiratory failure. From COVID-19 92% on 3 L. DC on home oxygen -Acute kidney injury secondary to gastroenteritis, prerenal: Improved IV fluids. Follow labs -Acute gastroenteritis related to Covid 19: Better -Mildly elevated liver enzymes Disposition: Home Patient Condition at Discharge: Fair Plan - Discharge Summary Discharge Rx Participant: Yes New Discharge Prescriptions: New Zinc Sulfate [Orazinc] 220 mg PO DAILY #30 cap Ascorbic Acid [Vitamin C] 1,000 mg PO DAILY #60 tab Rivaroxaban [Xarelto] 10 mg PO DAILY #30 tab predniSONE 10 mg PO DAILY #30 tab Cholecalciferol [Vitamin D3 (25 Mcg = 1000 Iu)] 25 mcg PO DAILY #30 tablet Discharge Medication List Ascorbic Acid [Vitamin C] 1,000 mg PO DAILY #60 tab 01/19/21 [Rx] Cholecalciferol [Vitamin D3 (25 Mcg = 1000 Iu)] 25 mcg PO DAILY #30 tablet 01/19/21 [Rx] Rivaroxaban [Xarelto] 10 mg PO DAILY #30 tab 01/19/21 [Rx] Zinc Sulfate [Orazinc] 220 mg PO DAILY #30 cap 01/19/21 [Rx] predniSONE 10 mg PO DAILY #30 tab 01/19/21 [Rx] Follow up Appointment(s)/Referral(s): Amy Flores MD [Primary Care Provider] - 1-2 days (Office closed at time of discharge. Please call tomorrow morning to make a follow up appointment.) Fay Rowell MD [STAFF PHYSICIAN] - 02/23/21 2:00 pm (Appointment with Lori Ceballos DNP.) Patient Instructions/Handouts: Coronavirus Disease 2019 (COVID-19) Activity/Diet/Wound Care/Special Instructions: incentive spirometry Discharge Disposition: HOME SELF-CARE
== END 2021-01-19 13:52 | disposition home or self-care (01) | DRG 177 ==
LOC: EC 09:40 → 4SSUR 12:25
PROVIDERS: ADMIT Hospitalist; ATTEND Hospitalist
DX: U07.1 COVID-19 (principal); J96.01 Acute respiratory failure with hypoxia; J12.82 Pneumonia due to coronavirus disease 2019; J44.0 Chronic obstructive pulmonary disease with (acute) lower respiratory infection; N17.9 Acute kidney failure, unspecified; K52.9 Noninfective gastroenteritis and colitis, unspecified; E86.0 Dehydration; R74.01 Elevation of levels of liver transaminase levels; R74.8 Abnormal levels of other serum enzymes
CPT/HCPCS: 36415; 71045; 71046; 80048; 80053; 83615; 84145; 85025; 85379; 86140; 87635; 94760; 96360; 99285